=== PATIENT | female | born 1995 | race Caucasian/White ===

== ENCOUNTER → 2024-01-07 | Day surgery (SDC) | payer BC | END | disposition home or self-care (01) | LOC: JRADIR 13:36 | PROVIDERS: ATTEND Obstetrics & Gynecology Reproductive Endocrinology | PROC: BU18YZZ Fluoroscopy of Uterus and Fallopian Tubes using Other Contrast (ICD-10-PCS; principal; 2024-01-07) | DX: N97.9 Female infertility, unspecified (principal) | CPT/HCPCS: 58340; 74740-TC-FY; 76000-TC-FY; 84703 ==